=== PATIENT | male | born 1960 | race Caucasian/White ===

== ENCOUNTER 2018-10-10 00:12 | Inpatient (IN) | payer OTHER ==
[2018-10-10] MEDS: SOD CHLORIDE 0.9% 950 ML IV (00:26)
[2018-10-10 00:38] LABS: ADD MAN DIFF? NO
[2018-10-10 00:41] LABS: BASOPHIL # 0.1 10^3/ul (0.0-0.1); BASOPHILS % 0.5 % (0.0-2.0); EOSINOPHILS # 0.3 10^3/ul (0.0-0.5); EOSINOPHILS % 3.3 % (0.0-7.0); HEMATOCRIT 43.1 % (42.0-52.0); HEMOGLOBIN 14.6 g/dl (14.0-18.0); LYMPHOCYTES # 3.5 10^3/ul (0.8-2.9); LYMPHOCYTES % 34.6 % (15.0-51.0); MEAN CORPUSCULAR HEMOGLOBIN 27.6 pg (29.0-33.0); MEAN CORPUSCULAR HGB CONC 33.9 g/dl (32.0-37.0); MEAN CORPUSCULAR VOLUME 81.5 fl (82.0-101.0); MEAN PLATELET VOLUME 10.6 fl (7.4-10.4); MONOCYTE # 0.9 10^3/ul (0.3-0.9); MONOCYTES % 8.5 % (0.0-11.0); NEUTROPHIL # 5.3 10^3/ul (1.6-7.5); NEUTROPHILS % 52.7 % (39.0-77.0); PLATELET COUNT 258 10^3/UL (140-415); RED BLOOD COUNT 5.29 10^6/ul (4.70-6.10); RED CELL DISTRIBUTION WIDTH 12.7 % (11.5-14.5)
[2018-10-10] MEDS ORDERED: LORAZEPAM 2 MG INJ (01:00)
[2018-10-10 01:02] LABS: ANION GAP 7 (5-13); BLOOD UREA NITROGEN 15 mg/dl (7-20); CALCIUM 9.5 mg/dl (8.4-10.2); CARBON DIOXIDE 30 mmol/L (21-31); CHLORIDE 99 mmol/L (97-110); CREATININE 0.97 mg/dl (0.61-1.24); Estimated GFR > 60 mL/min (>60); MAGNESIUM 1.8 mg/dl (1.7-2.5); POTASSIUM 4.8 mmol/L (3.5-5.1); SODIUM 136 mmol/L (135-144)
[2018-10-10 01:02] LABS: PHOSPHORUS 3.3 mg/dl (2.5-4.9)
[2018-10-10] MEDS: LORAZEPAM 2 MG INJ IV (01:03)
[2018-10-10 01:04] LABS: GLUCOSE 408 mg/dl (70-220)
[2018-10-10 01:14] LABS: TROPONIN-I 0.015 ng/ml (0.000-0.120)
[2018-10-10 01:30] LABS: HEMOGLOBIN A1C 12.9 % (0-5.9)
[2018-10-10 05:42] LABS: URINE PH (Dip) POC 5.5 (5.0-8.5)
[2018-10-10 05:42] LABS: URINE BLOOD (Dip) POC Negative (NEGATIVE); URINE KETONES (Dip) POC Negative (NEGATIVE); URINE LEUKOCYTE EST (Dip) POC Negative (NEGATIVE); URINE NITRITE (Dip) POC Negative (NEGATIVE); URINE TOTAL PROTEIN POC Negative (NEGATIVE)
[2018-10-10 05:59] LABS: UR KETONES (Dip) TRACE mg/dL (NEGATIVE)
[2018-10-10 06:52] LABS: BARBITURATES Negative (NEGATIVE); BENZODIAZEPINES Negative (NEGATIVE); CANNABINOIDS Negative (NEGATIVE); COCAINE Negative (NEGATIVE)
[2018-10-10 06:53] LABS: OPIATES Positive (NEGATIVE)
[2018-10-10 07:06] LABS: AMPHETAMINE/METHAMPHETAMINE POSITIVE (NEGATIVE)
[2018-10-10] MEDS ORDERED: NACL 0.9% 3 ML SYG IV (08:30)
[2018-10-10] MEDS ORDERED: HYDROCODONE/APAP (5/325) TAB PO ×2 (08:30)
[2018-10-10] MEDS ORDERED: ONDANSETRON 4 MG INJ IV (08:30)
[2018-10-10] MEDS ORDERED: ALBUTEROL/IPRATROPIUM (NEB) 3 ML AMP HHN (08:30)
[2018-10-10] MEDS ORDERED: NITROGLYCERIN (SL) 0.4 MG TAB SL (08:30)
[2018-10-10] MEDS ORDERED: FUROSEMIDE 20 MG INJ IV (09:00)
[2018-10-10] MEDS: ASPIRIN 81 MG TAB PO (09:30)
[2018-10-10] MEDS: ENOXAPARIN 40 MG/0.4 ML SYG SC (09:35)
[2018-10-10 10:32] LABS: CREATINE KINASE 146 IU/L (23-200)
[2018-10-10 10:44] LABS: CK INDEX 0.9; CK-MB 1.34 ng/ml (0.0-2.4)
[2018-10-10] MEDS ORDERED: METOPROLOL 25 MG TAB PO (21:00)
== END 2018-10-10 12:30 | disposition left against medical advice (07) | DRG 313 ==
LOC: E/R 00:12 → TEL 02:10
DX: R07.9 Chest pain, unspecified (principal); E11.65 Type 2 diabetes mellitus with hyperglycemia; I10 Essential (primary) hypertension; F15.10 Other stimulant abuse, uncomplicated; F11.10 Opioid abuse, uncomplicated; I25.10 Atherosclerotic heart disease of native coronary artery without angina pectoris
CPT/HCPCS: 71045; 80048; 80307; 81003; 81005; 82550; 82553; 83036; 83735; 84100; 84484; 85025; 93005; 93306; 96374; 99285-25